=== PATIENT | male | born 1965 | race Caucasian/White ===

== ENCOUNTER → 2016-11-06 | Day surgery (SDC) | payer OTHER ==
[~2016-11-06] MED LIST: ALLEGRA PO; LISINOPRIL PO; REMERON PO; TOPROL XL PO; VICODIN PO; ZOCOR20 MG PO
--- NOTE | ~2016-11-06 | OR ---
Unit #: [id number] #: [id number] Patient: LANDON LYONS [id number] [address] [id number] MR#: [id number] NAME: LANDON LYONS ROOM: Date of Procedure: 11/06/2016 Admission Date: 11/06/2016 Surgeon: Jay Bell M.D. : 1965 Attending Physician: Jay Bell M.D. Primary Care Physician: Primitivo Hidalgo M.D. OPERATIVE REPORT JOB NOTE: CC: DR. HIDALGO PROCEDURE Colonoscopy to cecum. INDICATIONS A 51-year-old with average risk for colorectal cancer. MEDICATIONS Monitored anesthesia. POSTOPERATIVE FINDINGS 1. Normal exam. 2. Good prep. PLAN Repeat colonoscopy in 10 years. DESCRIPTION OF PROCEDURE The patient was explained of the procedure, risks, and benefits along with the risks and benefits of anesthesia. He was brought to the endoscopy room. Propofol anesthesia was given. Rectal exam was done, which was normal. Colonoscope was lubricated, passed up the rectum, advanced under direct vision all the way to the cecum. Cecum was identified by ileocecal valve and appendiceal orifice. I then started to pull the scope out carefully looking. No polyps, masses, or colitis was seen. Mucosa was normal and healthy. I retroflexed in the rectum, small hemorrhoids seen. Gently, the scope was pulled out. He tolerated it well. Dictated by... Natalie Holder/dyana TD: 11/06/2016 17:17 JOB #: [id number] Unit #: [id number] #: [id number] Patient: LANDON LYONS OPERATIVE REPORT Page 1 of 1 X Jay Bell MD X PROCEDURE OPERATIVE NOTE
== END | disposition home or self-care (01) ==
LOC: COPS 10:50
DX: Z12.11 Encounter for screening for malignant neoplasm of colon (principal); K64.9 Unspecified hemorrhoids; I10 Essential (primary) hypertension; E78.5 Hyperlipidemia, unspecified; Z88.0 Allergy status to penicillin; Z88.8 Allergy status to other drugs, medicaments and biological substances; Z98.890 Other specified postprocedural states; Z79.899 Other long term (current) drug therapy